=== PATIENT | male | born 2000 | race Caucasian/White ===

== ENCOUNTER → 2020-06-01 13:07 | Outpatient (CLI) | payer OTHER, SELFPAY ==
--- NOTE | 2020-06-01 13:09 | RAD_ITS ---
STUDY: X-RAY - LUMBAR SPINE REASON FOR EXAM: Male, 20 years old. PAIN FOR 4 YEARS IN BACK. INCREASING PAIN THIS WEEK AND PAINFUL ESPECIALLY TO TWIST. NO RECENT INJURY TECHNIQUE: 4 view(s) of the lumbar spine were obtained including oblique views. COMPARISON: None FINDINGS: Normal lumbar lordosis. There is a minimal levoscoliosis of the lumbar spine. There is a normal alignment of the vertebrae. Normal vertebral bodies and endplates. Normal disc space heights. The soft tissue structures are unremarkable. RAD/L/S Spine Min 4 Views IMPRESSION: Minimal levoconvex scoliosis. Electronically Signed: Arun Sharpe, at 14:05 EDT , Service support ,
--- NOTE | 2020-06-01 13:09 | RAD_ITS ---
STUDY: X-RAY - THORACIC SPINE REASON FOR EXAM: Male, 20 years old. PAIN FOR 4 YEARS IN BACK. INCREASED PAIN THIS WEEK. NO RECENT INJURY. TECHNIQUE: 3 view(s) of the thoracic spine were obtained. COMPARISON: None. FINDINGS: Normal kyphosis of the thoracic spine. There is no substantial scoliosis. Normal thoracic vertebrae and endplates. Normal disc space heights. The soft tissue structures are unremarkable. RAD/Thoracic Spine 3 Views IMPRESSION: Normal x-ray examination of the thoracic spine. Electronically Signed: Arun Sharpe, at 14:04 EDT , Service support ,
== END ==
PROVIDERS: Referring Provider Physician Assistant; Visit Provider Physician Assistant
DX: M54.9 Dorsalgia, unspecified (principal)
CPT/HCPCS: 72072; 72110

== ENCOUNTER 2020-06-01 13:47 | Emergency (ER) | payer OTHER, SELFPAY ==
[2020-06-01 13:48] VITALS: BP 120/72; PULSE 87; RESP 14; TEMP 36.3; O2SAT 98; BMI 19.5
--- NOTE | 2020-06-01 14:13 | CT_ITS ---
STUDY: CT ABDOMEN AND PELVIS WITH CONTRAST REASON FOR EXAM: Male, 20 years old. Lower abdomen pain and amp; diarrhea x 3 days, back pain. No prior surgery, diabetes, hypertension, or intestinal problems. RADIATION DOSAGE (If Supplied By Facility): CTDIvol = ( 12.27 ) mGy, DLP = ( 607.54 ) mGycm TECHNIQUE: Transaxial images were obtained from the dome of the diaphragm to the symphysis pubis without oral contrast. IV 100mL Isovue-300 was administered. Sagittal and coronal images were reconstructed. Individualized dose optimization techniques were used for this CT. COMPARISON: None. FINDINGS: The visualized lung bases are unremarkable. The visualized portions of the heart are within normal limits. There is hepatomegaly with diffuse hepatic enlargement. Normal gallbladder and extrahepatic biliary system. There is mild splenomegaly. Normal pancreas. Normal bilateral adrenal glands. Normal right kidney. Normal left kidney. Normal visualized stomach. There is evidence of circumferential wall thickening of multiple small bowel loops suggestive of an enteritis. This is worse in the ileum with fluid-filled and thickened small bowel loops within the pelvis. Normal colon. The appendix is visualized and appears normal. Small lymph nodes are seen within the mesenteric fat in the right lower quadrant suggestive of a mesenteric adenitis. Normal abdominal aorta. Normal inferior vena cava. Normal retroperitoneum. Normal urinary bladder. Minimal amount of free fluid is seen in the pelvis. Normal abdominal wall. There is loss of the normal lumbar lordosis. CT/Abdomen/Pelvis W IV Cont ONLY IMPRESSION: Findings suggestive of enteritis more prominent in the ileal loops within the pelvis. Small amount of free fluid is seen in the pelvis. Mesenteric adenitis in the right lower quadrant. Hepatosplenomegaly. Electronically Signed: Arun Sharpe, at 15:33 EDT , Service support ,
--- NOTE | 2020-06-01 14:18 | ED.VIS.GI ---
History of Present Illness Chief Complaint: Abd Pain Informant: Patient - Abdominal Pain/Flank Pain Onset: Days Context: Gradual Onset Timing: Continuous Quality: Cramping, Sharp Worsened by: Food - Causes cramping abdominal pain Relieved by: Nothing - Nausea/Vomiting/Emesis GI Symptom: Nausea. Negative for: Vomiting - Diarrhea/Melena/Hematochezia GI Symptom: Diarrhea Onset: Days Stool Quality: Watery, Black Narrative: Patient is a 20-year-old male that denies any significant past medical history presenting from urgent care for abdominal and back pain. Patient states Monday morning, 3 days ago he developed pain in his lower back. He states it radiated around to his lower abdomen bilaterally. He now has pain that wraps around his entire lower abdomen. He states the pain is constant but alternates between more of a spasm versus a sharp knifelike sensation. He states that pain is most severe in his lower back but it also alternate around his abdomen. He sometimes has nausea secondary to pain denies any vomiting. States he is had copious diarrhea where he had 20 episodes yesterday and 12 episodes today so far. He states his stool has been a darker color than normal but denies any blood in his stool. He denies any pain radiating to his genitals or testicles or any testicular swelling. He denies any associated dysuria or hematuria. He states he had one prior episode similar to this in the past but it was milder and self-limited. Patient not take any medications for symptoms. When he went to urgent care they did a urine and x-ray of his thoracic and lumbar spine and were concerned about swelling of the intestines so they sent him to the emergency room. Patient denies any other complaints at this time. He denies any sick contacts. He denies any family history of ulcerative colitis or Crohn's disease. He denies associated fever, chills, chest pain, shortness of breath or rash Past Medical History - Allergies and Home Meds Allergies/Adverse Reactions: Allergies No Known Allergies Allergy (Verified 06/01/20 13:51) Past Medical History: None Surgical History: - - Testicular surgery as a child Review of Systems General: Denies: Chills, Fever, Sweats Eyes: Denies: Visual changes - bilaterally, Diplopia ENT: Denies: Rhinorrhea, Sore throat Cardiovascular: Denies: Chest pain, Palpitations Respiratory: Denies: Dyspnea, Cough, Dyspnea on exertion Gastrointestinal: Reports: Abdominal pain, Nausea, Diarrhea. Denies: Vomiting, Melena, Hematochezia Genitourinary: Denies: Dysuria, Hematuria, Frequency Musculoskeletal: Reports: Back pain. Denies: Extremity Pain Skin: Denies: Rash, Wounds Neurological: Denies: Headache, Weakness, Numbness Physical Exam Vital Signs/Narrative: Vital Signs Temp Pulse Resp BP Pulse Ox 06/01/20 13:48 97.4 F L 87 14 120/72 98 Inital Vital Signs reviewed: Yes General: Well nourished, Well developed, No Acute Distress Head: Normocephalic, Atraumatic Eyes: Perrl, EOMI ENT: Moist mucous membranes, No rhinorrhea Neck: Supple, Nontender Cardiovascular: Regular rate, Regular rhythm, No murmurs Respiratory: No distress, CTA bilaterally, Chest nontender Abdomen: Soft, Nontender, Nondistended, Normal bowel sounds, - - No pain at McBurney's point. Negative for: Guarding, Rebound tenderness, Hyperactive bowel sounds Back: Nontender, Normal Inspection. Negative for: CVA tenderness, Spinal tenderness Extremities: Nontender, No edema Skin: Normal color, No rash Neurological: Alert, Oriented x3, Cranial nerves II-XII grossly intact, Normal Strength, Normal Sensation Psychological: Normal affect, Normal Mood Diagnostic/Tx/Re-eval Clinical Impression(s) from Imaging Studies Abdomen/Pelvis CT 06/01/20 14:13 IMPRESSION: Findings suggestive of enteritis more prominent in the ileal loops within the pelvis. Small amount of free fluid is seen in the pelvis. Mesenteric adenitis in the right lower quadrant. Hepatosplenomegaly. Electronically Signed: Arun Sharpe, at 15:33 EDT , Service support , Laboratory Data 06/01/20 06/01/20 14:35 14:35 WBC 6.4 RBC 5.07 Hgb 16.2 Hct 46.0 MCV 90.7 MCH 32.0 MCHC 35.2 RDW Std Deviation 40.3 RDW Coeff of [place] 12.3 Plt Count 220 MPV 9.2 Immature Gran % (Auto) 0.200 Neut % (Auto) 64.2 Lymph % (Auto) 24.4 [place] % (Auto) 10.2 H Eos % (Auto) 0.5 Baso % (Auto) 0.5 Absolute Neuts (auto) 4.1 Absolute Lymphs (auto) 1.55 Nucleated RBC % 0 Sodium 136 Potassium 3.4 L Chloride 103 Carbon Dioxide 29.0 Anion Gap 4 L BUN 9 Creatinine 1.11 Estim Creat Clear Calc 110.74 Est GFR (MDRD) Af Amer 106 Est GFR (MDRD) Non-Af 88 BUN/Creatinine Ratio 8.1 L Glucose 89 Calcium 9.5 Total Bilirubin 1.00 AST 29 ALT 25 Alkaline Phosphatase 61 Total Protein 8.6 H Albumin 4.7 Globulin 3.9 Albumin/Globulin Ratio 1.2 Lipase 68 L - Medical Decision Making Evaluate for 3 days of lower abdominal pain as well as back pain and associated diarrhea. He is well-appearing with normal vital signs. Patient is given IV fluids in the emergency room. He is a medication for pain or discomfort at this time. He notes his stool has been dark. It is positive for occult blood however he is also been taking Pepto-Bismol. The blood could also be just from his frequent diarrhea, wiping or the colitis itself.Patient has a normal CBC and relatively unremarkable CMP. His lipase is normal. CT the abdomen pelvis obtained which is consistent with enteritis with prominent findings in the ileal loops within the pelvis which coincides with his area of pain. Mesenteric adenitis of the right lower quadrant is also seen. Is all consistent likely with a viral syndrome. Patient does provide a stool sample for testing for enteric pathogens as well has C. difficile. As patient is well-appearing with a benign abdomen I think he is a good candidate for outpatient follow-up. He discharged to follow with his primary care doctor. He is given a prescription for Zofran. He would continue take Pepto-Bismol as needed for GI symptoms. He is encouraged to not take Imodium until his stool cultures result and are negative. Patient is counseled on signs and symptoms requiring return to the emergency room. Patient verbalizes agreement and understand this plan. Patient discharged home in stable and improved condition. ED Disposition - Plan for ED Patient: Disposition: Home or Assisted Living Diagnosis: Enteritis, Mesenteric adenitis Instructions: ED Adenitis Mesenteric, ED Gastroenteritis Vs Food Poison Prescriptions: Ondansetron [Zofran Odt] 4 mg PO Q8H PRN PRN #10 tab PRN Reason: Nausea Transmission Status: Pending to [id number] Referrals: Care Physician,No Primary [Primary Care Provider] - Fast,Morenita, DO [NON-STAFF] - Additional Instructions: Your stool cultures are pending. Your stool did show some microscopic blood and it however this can be from the diarrhea itself. If the dark stools and diarrhea do not clear up please make sure he follow-up sooner or return to the emergency room for reevaluation. Continue take Pepto-Bismol as needed for diarrhea. Drink plenty of fluids and electrolyte-containing fluids. Return to the emergency room with any worsening symptoms or if you have worsening abdominal pain.
[2020-06-01 14:45] LABS: Absolute Lymphocyte Count 1.55 X10^3/uL (0.83-4.51); Absolute Neutrophil Count 4.1 X10^3/uL (2.0-7.7); Basophil# 0.03 X10^3/uL; Basophil% 0.5 % (0-1); Eosinophil# 0.03 X10^3/uL; Eosinophils% 0.5 % (0-5); Hemoglobin 16.2 g/dL (13.0-16.5); Lymphocyte # 1.55 X10^3/ul (4.0); Lymphocyte % 24.4 % (19-41); Mean Corp Hgb Conc 35.2 g/dL (32-36); Mean Corpuscular Volume 90.7 fL (80-94); Mean Platelet Vol. 9.2 fl (6.2-12.0); Monocyte# 0.65 X10^3/uL; Monocyte% 10.2 % (0-10); NRBC Flagged by Analyzer 0 % (0-5); Neutrophil # 4.09 X10^3/uL (2.7-7.7); Neutrophil % 64.2 % (47-70); Platelet Count 220 K/mm3 (150-450); RBC Distribution Width CV 12.3 % (11.6-14.6); RBC Distribution Width SD 40.3 fl (35.1-43.9); Red Blood Count 5.07 M/mm3 (4.6-6.2); White Blood Count 6.4 K/mm3 (4.4-11.0)
[2020-06-01 15:01] LABS: ALB/GLOB Ratio 1.2 RATIO (0.9-2.4); AST(SGOT) 29 U/L (15-37); Alanine Aminotransfer ALT/SGPT 25 U/L (16-61); Albumin, Serum 4.7 g/dL (3.2-5.0); Alkaline Phosphatase 61 U/L (45-117); Anion Gap 4 (5-15); BUN 9 mg/dL (7-18); BUN/Creat Ratio 8.1 RATIO (10-20); Calcium,Total 9.5 mg/dL (8.5-10.1); Chloride 103 mmol/L (98-107); Creatinine, Serum 1.11 mg/dL (0.70-1.30); EST Glomerular Filtration Rate 88 mL/min (>60); Est Glom Filt Rate - Afr Amer 106 mL/min (>60); Estimated Creatinine Clearance 110.74 ml/min; Globulin 3.9 g/dL (2.2-4.2); Glucose 89 mg/dL (74-106); Lipase 68 U/L (73-393); Potassium 3.4 mmol/L (3.5-5.1); Protein, Total 8.6 g/dL (6.4-8.2); Sodium Level 136 mmol/L (136-145)
[2020-06-01] MEDS: 0.9% Normal Saline 1,000 ML 1000 ML IV (16:26)
[2020-06-01 17:01] VITALS: BP 131/67; PULSE 84; RESP 16; O2SAT 97
== END 2020-06-01 17:02 | disposition home or self-care (01) ==
PROVIDERS: Emergency Provider Emergency Medicine
DX: K52.9 Noninfective gastroenteritis and colitis, unspecified (principal); I88.0 Nonspecific mesenteric lymphadenitis
CPT/HCPCS: 74177; 80053; 82274; 83690; 85025; 87493; 87506; 99283; J7030; Q9967; A4216